=== PATIENT | female | born 1995 | race American Indian/Alaskan Native ===

== ENCOUNTER 2021-06-19 10:10 | Emergency (ER) | payer OTHER ==
--- NOTE | 2021-06-19 12:05 | Emergency Department Report ---
ED Female HPI - General Chief complaint: Vaginal Bleeding Stated complaint: 17WKS PREG SPOTTING/CRAMPS Time Seen by Provider: 06/19/21 11:52 Source: patient Mode of arrival: Ambulatory Limitations: No Limitations - History of Present Illness Initial comments: This is a 26-year-old -[place] female that presents to the emergency room with vaginal bleeding since yesterday. Patient is 17 weeks . She also reports upper abdominal pain. She reports vaginal bleeding and spotting. Her abdominal pain is a cramping sensation that is worse in her pelvic region. Last menstrual period was February 20, 2021, A0. She denies urinary frequency, urgency, dysuria, fever, chills, back pain, diarrhea or vomiting. MD Complaint: vaginal bleeding -: Last night Location: suprapubic, other (RUQ) Severity scale (0 -10): 6 Quality: cramping Are you Now?: Yes Last Menstrual Period: 02/20/21 EDC: 11/27/21 Associated Symptoms: vaginal bleeding, abdominal pain. denies: vaginal discharge, nausea/vomiting, fever/chills, headaches, dysuria, hematuria, shortness of breath - Related Data : 3 Para: 2 A: 0 Previous Rx's Medication Instructions Recorded Last Taken Type Nitrofurantoin Frio/M-Cryst 100 mg PO Q12HR #20 capsule 06/19/21 Unknown Rx [Macrobid CAP] Allergies Allergy/AdvReac Type Severity Reaction Status Date / Time Iodinated Contrast Media Allergy Unknown Verified 06/19/21 11:55 ED Review of Systems ROS: Stated complaint: 17WKS PREG SPOTTING/CRAMPS Other details as noted in HPI Constitutional: denies: chills, fever Respiratory: denies: cough, shortness of breath, wheezing Cardiovascular: denies: chest pain, palpitations Gastrointestinal: abdominal pain. denies: nausea, diarrhea Genitourinary: hematuria. denies: urgency, dysuria, discharge Musculoskeletal: denies: back pain, joint swelling, arthralgia Neurological: denies: headache, weakness, paresthesias Psychiatric: denies: anxiety, depression ED Past Medical Hx - Past Medical History Previous Medical History?: No - Surgical History Past Surgical History?: No - Medications Home Medications: Home Medications Medication Instructions Recorded Confirmed Last Taken Type Nitrofurantoin Frio/M-Cryst 100 mg PO Q12HR #20 capsule 06/19/21 Unknown Rx [Macrobid CAP] ED Physical Exam - General Limitations: No Limitations General appearance: alert, in no apparent distress - Respiratory Respiratory exam: Present: normal lung sounds bilaterally. Absent: respiratory distress - Cardiovascular Cardiovascular Exam: Present: regular rate, normal rhythm. Absent: systolic murmur, diastolic murmur, rubs, gallop - GI/Abdominal GI/Abdominal exam: Present: soft, tenderness (Suprapubic), normal bowel sounds. Absent: guarding, rebound - Back Exam Back exam: Present: CVA tenderness (R). Absent: CVA tenderness (L) - Neurological Exam Neurological exam: Present: alert, oriented X3, normal gait - Psychiatric Psychiatric exam: Present: normal affect, normal mood - Skin Skin exam: Present: warm, dry, intact, normal color. Absent: rash ED Course Vital Signs 06/19/21 11:50 Temperature 98 F Pulse Rate 80 Respiratory 16 Rate Blood Pressure 97/64 [Left] O2 Sat by Pulse 93 Oximetry ED Medical Decision Making - Lab Data Result diagrams: 06/19/21 12:00 06/19/21 12:00 Vital Signs 06/19/21 11:50 Temperature 98 F Pulse Rate 80 Respiratory 16 Rate Blood Pressure 97/64 [Left] O2 Sat by Pulse 93 Oximetry Lab Results 06/19/21 06/19/21 06/19/21 Range/Units 12:00 12:00 12:00 WBC 11.2 H (4.5-11.0) K/mm3 RBC 4.63 (3.65-5.03) M/mm3 Hgb 12.3 (10.1-14.3) gm/dl Hct 36.7 (30.3-42.9) % MCV 79 (79-97) fl MCH 27 L (28-32) pg MCHC 33 (30-34) % RDW 15.9 H (13.2-15.2) % Plt Count 181 (140-440) K/mm3 Lymph % (Auto) 10.2 L (13.4-35.0) % Frio % (Auto) 7.4 H (0.0-7.3) % Eos % (Auto) 2.9 (0.0-4.3) % Baso % (Auto) 0.5 (0.0-1.8) % Lymph # (Auto) 1.2 (1.2-5.4) K/mm3 Frio # (Auto) 0.8 (0.0-0.8) K/mm3 Eos # (Auto) 0.3 (0.0-0.4) K/mm3 Baso # (Auto) 0.1 (0.0-0.1) K/mm3 Seg Neutrophils % 79.0 H (40.0-70.0) % Seg Neutrophils # 8.9 H (1.8-7.7) K/mm3 Sodium 137 (137-145) mmol/L Potassium 3.5 L (3.6-5.0) mmol/L Chloride 105.7 (98-107) mmol/L Carbon Dioxide 25 (22-30) mmol/L Anion Gap 10 mmol/L BUN 5 L (7-17) mg/dL Creatinine 0.4 L (0.6-1.2) mg/dL Estimated GFR > 60 ml/min BUN/Creatinine Ratio 13 % Glucose 79 (65-100) mg/dL Calcium 9.4 (8.4-10.2) mg/dL Total Bilirubin 0.20 (0.1-1.2) mg/dL AST 17 (5-40) units/L ALT 18 (7-56) units/L Alkaline Phosphatase 71 (35-129) units/L Total Protein 7.2 (6.3-8.2) g/dL Albumin 3.7 L (3.9-5) g/dL Albumin/Globulin Ratio 1.1 % HCG, Quant 73926 H (0-4) mIU/mL Urine Color (Yellow) Urine Turbidity (Clear) Urine pH (5.0-7.0) Ur Specific Superior (1.003-1.030) Urine Protein (Negative) mg/dL Urine Glucose (UA) (Negative) mg/dL Urine Ketones (Negative) mg/dL Urine Blood (Negative) Urine Nitrite (Negative) Urine Bilirubin (Negative) Urine Urobilinogen (<2.0) mg/dL Ur Leukocyte Esterase (Negative) Urine WBC (Auto) (0.0-6.0) /HPF Urine RBC (Auto) (0.0-6.0) /HPF U Epithel Cells (Auto) (0-13.0) /HPF Urine Mucus /HPF Blood Type 06/19/21 06/19/21 Range/Units 12:00 13:24 WBC (4.5-11.0) K/mm3 RBC (3.65-5.03) M/mm3 Hgb (10.1-14.3) gm/dl Hct (30.3-42.9) % MCV (79-97) fl MCH (28-32) pg MCHC (30-34) % RDW (13.2-15.2) % Plt Count (140-440) K/mm3 Lymph % (Auto) (13.4-35.0) % Frio % (Auto) (0.0-7.3) % Eos % (Auto) (0.0-4.3) % Baso % (Auto) (0.0-1.8) % Lymph # (Auto) (1.2-5.4) K/mm3 Frio # (Auto) (0.0-0.8) K/mm3 Eos # (Auto) (0.0-0.4) K/mm3 Baso # (Auto) (0.0-0.1) K/mm3 Seg Neutrophils % (40.0-70.0) % Seg Neutrophils # (1.8-7.7) K/mm3 Sodium (137-145) mmol/L Potassium (3.6-5.0) mmol/L Chloride (98-107) mmol/L Carbon Dioxide (22-30) mmol/L Anion Gap mmol/L BUN (7-17) mg/dL Creatinine (0.6-1.2) mg/dL Estimated GFR ml/min BUN/Creatinine Ratio % Glucose (65-100) mg/dL Calcium (8.4-10.2) mg/dL Total Bilirubin (0.1-1.2) mg/dL AST (5-40) units/L ALT (7-56) units/L Alkaline Phosphatase (35-129) units/L Total Protein (6.3-8.2) g/dL Albumin (3.9-5) g/dL Albumin/Globulin Ratio % HCG, Quant (0-4) mIU/mL Urine Color Yellow (Yellow) Urine Turbidity Slightly-cloudy (Clear) Urine pH 6.0 (5.0-7.0) Ur Specific Superior 1.014 (1.003-1.030) Urine Protein <15 mg/dl (Negative) mg/dL Urine Glucose (UA) Neg (Negative) mg/dL Urine Ketones Tr (Negative) mg/dL Urine Blood Neg (Negative) Urine Nitrite Neg (Negative) Urine Bilirubin Neg (Negative) Urine Urobilinogen < 2.0 (<2.0) mg/dL Ur Leukocyte Esterase Mod (Negative) Urine WBC (Auto) 16.0 H (0.0-6.0) /HPF Urine RBC (Auto) 5.0 (0.0-6.0) /HPF U Epithel Cells (Auto) 14.0 H (0-13.0) /HPF Urine Mucus Few /HPF Blood Type O POSITIVE - Radiology Data Radiology results: report reviewed ULTRASOUND OBSTETRIC INDICATION / CLINICAL INFORMATION: vaginal bleeding 17 wks gest. Clinical Gestational Age (GA) in weeks, days: 17, 2 TECHNIQUE: Transabdominal. COMPARISON: None available. FINDINGS: Single intrauterine . Biparietal Diameter = 3.8 cm = 17, for weeks, days Head Circumference = 13 point cm = 17 weeks, days Abdominal Circumference = 11.5 cm = 17, 10 weeks, days Femur Length = 2.4 cm = 17, 0 weeks, days Average Ultrasound Age (AUA) = 17, 2 weeks, days Heart Rate: 138 beats per minute. Estimated Weight in grams (if calculated): 184 Estimated Weight Growth Percentile (if calculated): Not performed Position: breech. Cervix: closed. Length in cm (if measured): 3.3 Placenta: Fundal and free of the os. IMPRESSION: 1. Single, living intrauterine with estimated sonographic age of 17 weeks 2 days. 2. No significant sonographic abnormality. Signer Name: Angel Ratliff MD Signed: 06/19/2021 1:01 PM Workstation Name: [email or web address] - Medical Decision Making This is a 26-year-old female that presents with vaginal bleeding for 1 day. Vitals are stable and patient in no acute distress. Mild suprapubic tenderness on exam. Denies vaginal discharge. Work-up: Urinalysis, urine test, hCG quant, and OB ultrasound. Urinalysis positive for WBCs and epithelial ce lls, hCG quant, and OB ultrasound findings of Single, living intrauterine with estimated sonographic age of 17 weeks 2 days. Start Macrobid for acute cystitis. Instructed to follow-up with her [facility] in 24 to 48 hours. Patient discharged home stable with strict return instructions. Critical care attestation.: If time is entered above; I have spent that time in minutes in the direct care of this critically ill patient, excluding procedure time. ED Disposition Clinical Impression: Threatened Hematuria Qualifiers: Hematuria type: unspecified type Qualified Code(s): R31.9 - Hematuria, unspecified Abdominal pain Qualifiers: Abdominal location: right upper quadrant Qualified Code(s): R10.11 - Right upper quadrant pain Acute cystitis during Qualifiers: Trimester: second trimester Qualified Code(s): O23.12 - Infections of bladder in , second trimester Disposition: 01 HOME / SELF CARE / HOMELESS Is pt being admited?: No Condition: Stable Instructions: Abdominal Pain During , [id number], and Urinary Tract Infection, Vaginal Bleeding During , Second Trimester, [id number] Prescriptions: Nitrofurantoin Frio/M-Cryst [Macrobid CAP] 100 mg PO Q12HR #20 capsule Referrals: GRACIE STONE MD [Staff Physician] - 3-5 Days Forms: Work/School Release Form(ED) Time of Disposition: 15:12
[2021-06-19 12:36] LABS: Basophils # (Auto) 0.1 K/mm3 (0.0-0.1); Basophils % (Auto) 0.5 % (0.0-1.8); Eosinophils # (Auto) 0.3 K/mm3 (0.0-0.4); Eosinophils % (Auto) 2.9 % (0.0-4.3); Hematocrit 36.7 % (30.3-42.9); Hemoglobin 12.3 gm/dl (10.1-14.3); Lymphocytes # (Auto) 1.2 K/mm3 (1.2-5.4); Lymphocytes % (Auto) 10.2 % (13.4-35.0); Mean Corpuscular HGB Conc 33 % (30-34); Mean Corpuscular Volume 79 fl (79-97); Monocytes # (Auto) 0.8 K/mm3 (0.0-0.8); Monocytes % (Auto) 7.4 % (0.0-7.3); Platelet Count 181 K/mm3 (140-440); Red Blood Count 4.63 M/mm3 (3.65-5.03); Red Cell Distribution Width 15.9 % (13.2-15.2)
[2021-06-19 12:43] LABS: Alanine Aminotransferase 18 units/L (7-56); Albumin 3.7 g/dL (3.9-5); Blood Urea Nitrogen 5 mg/dL (7-17); Calcium 9.4 mg/dL (8.4-10.2); Hemolysis Index 0
[2021-06-19 12:58] LABS: BUN/Creatinine Ratio 13
--- NOTE | 2021-06-19 13:05 | Ultrasound Report ---
ULTRASOUND OBSTETRIC INDICATION / CLINICAL INFORMATION: vaginal bleeding 17 wks gest. Clinical Gestational Age (GA) in weeks, days: 17, 2 TECHNIQUE: Transabdominal. COMPARISON: None available. FINDINGS: Single intrauterine . Biparietal Diameter = 3.8 cm = 17, for weeks, days Head Circumference = 13 point cm = 17 weeks, days Abdominal Circumference = 11.5 cm = 17, 10 weeks, days Femur Length = 2.4 cm = 17, 0 weeks, days Average Ultrasound Age (AUA) = 17, 2 weeks, days Heart Rate: 138 beats per minute. Estimated Weight in grams (if calculated): 184 Estimated Weight Growth Percentile (if calculated): Not performed Position: breech. Cervix: closed. Length in cm (if measured): 3.3 Placenta: Fundal and free of the os. IMPRESSION: 1. Single, living intrauterine with estimated sonographic age of 17 weeks 2 days. 2. No significant sonographic abnormality. Signer Name: Angel Ratliff MD Signed: 06/19/2021 1:01 PM Workstation Name: [email or web address]
[2021-06-19 13:44] LABS: Bilirubin,Urine NEG (Negative); Blood,Urine NEG (Negative); Color,Urine Yellow (Yellow); Mucus,Urine FEW /HPF; Protein,Urine <15 mg/dL mg/dL (Negative); Urobilinogen,Urine < 2.0 mg/dL (<2.0)
[2021-06-19] MEDS ORDERED: diphenhydrAMINE 25 MG/10 ML ORAL LIQUID PO ONE (14:13)
[2021-06-19 15:29] VITALS: BP 102/58
== END 2021-06-19 15:28 | disposition home or self-care (01) ==
LOC: ED 10:10
DX: O20.0 Threatened abortion (principal); O26.892 Other specified pregnancy related conditions, second trimester; O23.12 Infections of bladder in pregnancy, second trimester; R31.9 Hematuria, unspecified; R10.9 Unspecified abdominal pain; Z3A.17 17 weeks gestation of pregnancy
CPT/HCPCS: 36415; 76805; 80053; 81001; 84702; 85025; 86900; 86901; 87086; 99284; Q0163

== ENCOUNTER 2021-07-23 20:32 | Outpatient (CLI) | payer OTHER ==
[2021-07-23 21:39] VITALS: BP 105/58
[2021-07-23] MEDS ORDERED: LACTATED RINGERS 1,000 ML IV ONE (21:48)
[2021-07-23 22:10] LABS: Bilirubin,Urine NEG (Negative); Blood,Urine NEG (Negative); Color,Urine Straw (Yellow); Protein,Urine <15 mg/dL mg/dL (Negative); Urobilinogen,Urine < 2.0 mg/dL (<2.0)
== END 2021-07-23 22:45 | disposition home or self-care (01) ==
LOC: TRG 20:32 → APU 20:33 → TRG 22:45
PROVIDERS: ATTEND Obstetrics & Gynecology
DX: O26.892 Other specified pregnancy related conditions, second trimester (principal); R10.9 Unspecified abdominal pain; Z3A.21 21 weeks gestation of pregnancy
CPT/HCPCS: 59025; 81001

== ENCOUNTER 2021-10-28 11:33 | Outpatient (CLI) | payer OTHER ==
[2021-10-28] MEDS ORDERED: LACTATED RINGERS 500 ML IV ONE (11:43)
[2021-10-28 12:30] VITALS: BP 105/60
--- NOTE | 2021-10-28 12:41 | Ultrasound Report ---
ULTRASOUND OBSTETRIC LIMITED ULTRASOUND BIOPHYSICAL PROFILE INDICATION / CLINICAL INFORMATION: wellbeing. TECHNIQUE: Transabdominal. COMPARISON: None available. FINDINGS: BREATHING MOVEMENT = 2 GROSS BODY MOVEMENT = 2 TONE = 2 QUALITATIVE AMNIOTIC FLUID VOLUME = 2 TOTAL BIOPHYSICAL SCORE = 8/8 HEART RATE (beats per minute): 140 PRESENTATION: Cephalic. ADDITIONAL FINDINGS: None. IMPRESSION: 1. Biophysical Score = 8/8 2. Cephalic presentation with heart rate of 140 bpm. Signer Name: Angel Ratliff MD Signed: 10/28/2021 12:36 PM Workstation Name: [id number]
== END 2021-10-28 13:20 | disposition home or self-care (01) ==
LOC: TRG 11:33 → APU 11:35 → TRG 13:20
PROVIDERS: ATTEND Obstetrics & Gynecology
DX: O26.893 Other specified pregnancy related conditions, third trimester (principal); V89.2XXA Person injured in unspecified motor-vehicle accident, traffic, initial encounter; Z3A.35 35 weeks gestation of pregnancy; Y93.89 Activity, other specified; Y92.89 Other specified places as the place of occurrence of the external cause; Y99.8 Other external cause status
CPT/HCPCS: 59025; 76819

== ENCOUNTER 2021-10-29 22:37 | Outpatient (CLI) | payer OTHER ==
[2021-10-29] MEDS ORDERED: LACTATED RINGERS 500 ML IV ONE (23:04)
[2021-10-29 23:29] VITALS: BP 110/60
[2021-10-29] MEDS ORDERED: LACTATED RINGERS 1,000 ML IV ONE (23:41)
[2021-10-29] MEDS ORDERED: TERBUTALINE 1 MG/1 ML INJ SUB-Q ONE (23:41)
[2021-10-30 00:35] LABS: Bilirubin,Urine NEG (Negative); Blood,Urine SM (Negative); Color,Urine Yellow (Yellow); Protein,Urine <15 mg/dL mg/dL (Negative); Urobilinogen,Urine < 2.0 mg/dL (<2.0)
--- NOTE | 2021-10-30 01:36 | Event Note ---
Date: 10/30/21 Pt is a 26 y.o.@ 35.6 wks who presented to triage with a c/o contractions. EFM was applied that found patient was having some irregular contractions. Her cervical exam was 2/50/-1, very posterior and firm. She was given some fluids and terb. The contractions stopped. Upon entering room for reassessment, pt was sitting up in bed on her iPad, stating that she was no longer feeling contractions and was ready for discharge home. She denies vaginal bleeding, LOF. Her cervical exam before discharge home was 2/50/-1, still very posterior and firm. There was a category 1 monitor strip throughout hospital stay. She was instructed to keep her next scheduled appointment in the office and to return to triage for ctxs that are regular and painful, LOF, vaginal bleeding, and decreased movement. Pt verbalized understanding. Patient discharge home in stable and good condition.
== END 2021-10-30 01:27 | disposition home or self-care (01) ==
LOC: TRG 22:37 → APU 22:38 → TRG 10-30 01:27
PROVIDERS: ATTEND Obstetrics & Gynecology
DX: O62.9 Abnormality of forces of labor, unspecified (principal); Z3A.35 35 weeks gestation of pregnancy
CPT/HCPCS: 59025; 81001; 87086; 96360; 96372; J3105; J7120

== ENCOUNTER 2021-10-31 23:24 | Outpatient (CLI) | payer OTHER ==
[2021-10-31] MEDS ORDERED: LACTATED RINGERS 500 ML IV ONE (23:59)
[2021-11-01] MEDS ORDERED: LACTATED RINGERS 1,000 ML ONE (00:06)
[2021-11-01 01:51] VITALS: BP 116/73
[2021-11-06 03:06] LABS: Bacteria,Urine 1+ /HPF (Negative); Bilirubin,Urine NEG (Negative); Blood,Urine NEG (Negative); Color,Urine Yellow (Yellow); Protein,Urine <15 mg/dL mg/dL (Negative); Urobilinogen,Urine < 2.0 mg/dL (<2.0)
== END 2021-11-01 02:45 | disposition home or self-care (01) ==
LOC: TRG 23:24 → APU 23:25 → TRG 11-01 02:45
PROVIDERS: ATTEND Obstetrics & Gynecology
DX: Z34.93 Encounter for supervision of normal pregnancy, unspecified, third trimester (principal); Z3A.36 36 weeks gestation of pregnancy
CPT/HCPCS: 81001; 87086

== ENCOUNTER 2021-11-06 02:20 | Inpatient (IN) | payer OTHER ==
[2021-11-06 03:22] LABS: Bilirubin,Urine Negative (Negative); Blood,Urine Negative (Negative); Color,Urine Yellow (Yellow); Protein,Urine <15 mg/dL mg/dL (Negative)
[2021-11-06 03:23] LABS: Urobilinogen,Urine < 2.0 mg/dL (<2.0)
[2021-11-06 03:25] LABS: Bacteria,Urine 1+ /HPF (Negative)
--- NOTE | 2021-11-06 05:23 | History and Physical Report ---
History of Present Illness Date of examination: 11/06/21 Date of admission: 11/06/2021 Chief complaint: "A lot of contractions." History of present illness: Pt is a 26 y.o. @ 37 wks who presents to triage with c/o contractions. Tonight they became more painful and intense so she presented to triage for evaluation. Her cervical exam in the office on 11/05 was 4/70/-1. Her previous cervical exam on 10/30/21 was 2/50/-1. 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 No placenta previa or vasa previa seen on [facility] u/s on 10/11. Posterior placenta noted on 10/11. EDC Confirmation: 11/27/2021 Gestational Age: 37 weeks on admission Past History : 3 Term Births: 2 Premature Births: 0 Living Children: 2 Para: 2 Mult. Births: 0 Prev : 0 Aborta: 0 Elect. Ab: 0 Spont. Ab: 0 Ectopics: 0 # 1 Delivery date: Weeks Gestation: Term labor: no Delivery type: Sex: Female weight: 5#1 # 2 Delivery date: 06/15/2017 Weeks Gestation: Term labor: no Delivery type: Sex: Male weight: 6#7 Past Medical History: Reviewed and updated today: Tetralogy of Fallot Past Surgical History: Reviewed and updated today: cardiac surgery to repair ToF General Comments - FH: denies [facility] Social History: Smoking History: Patient has never smoked. Risk Factors: Smoked Tobacco Use: Never smoker Smokeless Tobacco Use: Never Passive Smoke Exposure: no HIV High Risk Behavior: no Alcohol Use: no Drug Use: no Past Medical History Anesthesia Complications: negative Anemia: negative Autoimmune Disorder: negative Bleeding Disorder: negative Blood Transfusions: negative Breast Disease: negative Diabetes: negative Heart Disease: positive, ToF Hypertension: negative Hepatitis/Liver Disease: negative Kidney Disease/UTI: negative Neurologic/Epilepsy/Migraines: negative Phlebitis/Varicosities: negative Psychiatric: negative Pulmonary Disease/Asthma: negative Thyroid Disease: negative Surgery (Non-investment banker): cardiac surgery to repair ToF Abnormal PAP: negative ARNULFO Exposure: negative Infertility: negative Uterine Anomaly: negative Uterine Surgery (not C/S): negative Family Hx: denies H Social Hx: Smoking History: Patient has never smoked. Infection History Hx of STD: none HIV Risk Eval: no Hepatitis B Risk Eval: low risk Personal hx. of genital herpes: no Partner hx. of genital herpes: no Rash, Viral, or Febrile illness since last LMP? no Genetic History Congenital Heart Defect: Mom: no Dad: no Celso Disease: Mom: no Dad: no Thalassemia Mom: no Dad: no Neural Tube Defect Mom: no Dad: no Down's Syndrome Mom: no Dad: no Usman-Sachs Mom: no Dad: no Sickle Cell Disease/Trait Mom: no Dad: no Hemophilia Mom: no Dad: no Muscular Dystrophy Mom: no Dad: no Cystic Fibrosis Mom: no Dad: no Jessie Chorea Mom: no Dad: no Mental Retardation Mom: no Dad: no Fragile X Mom: no Dad: no Other Genetic/Chromosomal Disorder Mom: no Dad: no Child w/other defect Mom: no Dad: no Active Medications (reviewed today): prental vitamins () Current Allergies (reviewed today): IODINE (Critical) * SHELLFISH (Critical) Past History Past Medical History: hematologic disorders (Sickle cell trait), other (Tetralogy of Fallot) Past Surgical History: other (Tetralogy of Fallot that was surgically repaired ) Family/Genetic History: none Social history: no significant social history - Obstetrical History Expected Date of Delivery: 11/27/21 Actual Gestation: 37 Week(s) 0 Day(s) : 3 Para: 2 Hx # Term Pregnancies: 2 Number of Pregnancies: 0 Spontaneous Abortions: 0 Induced : 0 Number of Living Children: 2 Medications and Allergies Allergies Allergy/AdvReac Type Severity Reaction Status Date / Time Iodinated Contrast Media Allergy Unknown Verified 10/28/21 13:10 Home Medications Medication Instructions Recorded Confirmed Last Taken Type Nitrofurantoin [place]/M-Cryst 100 mg PO Q12HR #20 capsule 06/19/21 Unknown Rx [Macrobid CAP] Nitrofurantoin [place]/M-Cryst 100 mg PO Q12HR #10 capsule 10/30/21 Unknown Rx [Macrobid CAP] Review of Systems All systems: negative - Vital Signs Vital signs: Vital Signs Temp Pulse Resp BP 98.2 F 78 18 118/65 11/06/21 03:03 11/06/21 03:03 11/06/21 03:03 11/06/21 03:03 Temp Pulse Resp BP Pulse Ox 98.2 F 78 18 118/65 11/06/21 03:03 11/06/21 03:03 11/06/21 03:03 11/06/21 03:03 - Physical Exam Breasts: Positive: deferred Cardiovascular: Regular rate Lungs: Positive: Normal air movement Abdomen: Positive: normal appearance, soft Genitourinary (Female): Positive: normal external genitalia, normal perenium Vulva: both: normal Extremities: Positive: normal - Obstetrical FHR: category 1 Uterine Contraction Monitor Mode: External Cervical Dilatation: 4 Cervical Effacement Percentage: 70 station: -1 Uterine Contraction Pattern: Irregular Uterine Tone Measurement Phase: Resting Uterine Contraction Intensity: Mild Results Result Diagrams: 11/06/21 06:20 Abnormal lab results 11/06/21 Range/Units 02:38 Urine WBC (Auto) 20.0 H (0.0-6.0) /HPF All other labs normal. HBsAg Screen Negative Negative *1 RPR Non Reactive Non Reactive *2 Rubella Antibodies, IgG 3.55 index Immune >0.99 *3 Non-immune <0.90 Equivocal 0.90 - 0.99 Immune >0.99 ABO Grouping O *4 Rh Factor Positive *5 Please note: Prior records for this patient's ABO / Rh type are not available for additional verification. Antibody Screen Negative Negative *6 WBC 8.1 x10E3/uL 3.4-10.8 *7 RBC 4.22 x10E6/uL 3.77-5.28 *8 Hemoglobin [L] 10.7 g/dL 11.1-15.9 *9 Hematocrit [L] 33.5 % 34.0-46.6 *10 MCV 79 fL 79-97 *11 MCH [L] 25.4 pg 26.6-33.0 *12 MCHC 31.9 g/dL 31.5-35.7 *13 RDW [H] 15.7 % 11.7-15.4 *14 Platelets 208 x10E3/uL 150-450 *15 Neutrophils 76 % Not Estab. *16 Lymphs 10 % Not Estab. *17 Monocytes 8 % Not Estab. *18 Eos 4 % Not Estab. *19 Basos 1 % Not Estab. *20 ! Immature Cells <No Reported Value> *21 Neutrophils (Absolute) 6.1 x10E3/uL 1.4-7.0 *22 Lymphs (Absolute) 0.8 x10E3/uL 0.7-3.1 *23 Monocytes(Absolute) 0.7 x10E3/uL 0.1-0.9 *24 Eos (Absolute) 0.3 x10E3/uL 0.0-0.4 *25 Baso (Absolute) 0.0 x10E3/uL 0.0-0.2 *26 ! Immature Granulocytes 1 % Not Estab. *27 ! Immature Grans (Abs) 0.1 x10E3/uL 0.0-0.1 *28 ! NRBC <No Reported Value> *29 Hematology Comments: <No Reported Value> *30 Tests: (2) AFP Tetra (192072) ! Results Report *31 ! Test Results: *Screen Negative* *32 ! Gest. Age on Collection Date 20.0 WEEKS *33 ! Gestat. Age Based On Ultrasound *34 20.0 on 07/09/2021 ! [age]ARIN [age] *35 ! Race Black *36 ! Weight 148 lbs *37 ! Insulin Dep Diabetes No *38 ! Multiple Gestation No *39 ! AFP Value 75.4 ng/mL *40 ! AFP MoM 1.19 *41 ! hCG Value 76022 mIU/mL *42 ! hCG MoM 0.87 *43 ! uE3 Value 2.99 ng/mL *44 ! uE3 MoM 1.31 *45 ! DIANNA Value 155.43 pg/mL *46 ! DIANNA MoM 0.83 *47 ! OSBR [place] 1 [place] [address] *48 ! DSR (Second Trimester) 1 [place] [address] *49 ! DSR (By Age) 1 IN 1039 *50 ! T18 Risk Not increased *51 ! T18 (By Age) 1:4050 *52 ! Interpretation NL42 *53 Interpretation: Screen Negative This result is screen negative for OSB, Down Syndrome and Trisomy 18. The AFP MoM and patient specific risks calculated are based on the gestational age and the clinical information provided. This test can identify up to 80% of open neural tube defects. Closed neural tube defects and some open defects may not be detected by this test. The combination of maternal age, AFP, hCG, uE3, and DIANNA identifies 75-80% of Down Syndrome. The combination of maternal age, AFP, hCG and uE3 identifies 60% of Trisomy 18 pregnancies. The [place] [employer] recommends amniocentesis be offered to women age 35 and older. Recalculations are not recommended when gestational dating by LMP and ultrasound are within 10 days. ! Comments: [facility] *54 Mervat Smith, Ph.D., [facility] Director References: Available Upon Request. Multiples Of Median Cutoffs Abbreviation Definitions For AFP Elevations IDD- Insulin Dep Diabetes [place] 2.5 Black 2.8 OSBR- Open Spina Bifida IDD 2.0 Twins 4.5 Risk DSR Cutoff 1:270 DSR- Down Syndrome Risk T18 Cutoff 1:100 T18- Trisomy 18 Down Syndrome and Trisomy 18 screening are considered Investigational For further inquiries contact [employer] at [phone]. Tests: (3) Cystic Fibrosis Profile (206318) ! CF, Screen Comment: *55 RESULTS: Negative for 32 mutations analyzed INTERPRETATION: This individual is negative for the mutations analyzed. This negative result may need further interpretation depending on the clinical indication. This result reduces but does not eliminate the risk to be a CF carrier. COMMENTS: The detection rate varies with ethnicity and is listed below. The presence of an undetected mutation in the CF gene cannot be ruled out. In the absence of family history, the remaining risk that a person with a negative result could have at least one CF mutation is listed in the table. If there is a family history of CF, these risk figures do not apply. As detailed information regarding this individual's family history would permit a more accurate assessment of this individual's risk to be a carrier of cystic fibrosis, please contact [facility] at for a revised report. Mutation Detection Detection rates are based on mutation Rates among Ethnic frequencies in patients affected with Groups cystic fibrosis. Among individuals with an atypical or mild presentation (e.g. congenital absence of the vas deferens, pancreatitis) detection rates may vary from those provided here: Carrier risk reduction when no family history Detection Ethnicity Rate Ashkenazi 10/31 to 97% Mormon 10/30 to 90% (non-) -Cypriot 65 to 69% 46 to 73% to 55% This interpretation is based on the clinical and family relationship information provided and the current understanding of the molecular genetics of this condition. MUTATIONS ANALYZED: G85E V520F X1696R 2183AA to G R117H G542X C6796V 2184delA R334W S549N 394delTT 2789+5G to A R347H S549R 621+1G to T 3120+1G to A R347P G551D 711+1G to T 3659delC A455E R553X 1078delT 3849+10kbC to T [id number] R560T 1717-1G to A 3876delA TxbohH430 W1654Y 1898+1G to A 3905insT METHODS/LIMITATIONS: DNA is isolated from the sample and tested for the 32 CF mutations on the [place] Array Platform ([employer]). Regions of the CFTR gene are amplified enzymatically and subjected to a solution-phase multiplex allele-specific primer extension with subsequent hybridization to a bead array and fluorescence detection. Polymorphisms F508C, I506V and I507V are included in this panel to rule out false positive [id number] homozygotes. Reflex testing of 5T is included in the panel for R117H interpretation. False positive or negative results may occur for reasons that include genetic variants, blood transfusions, bone marrow transplantation, erroneous representation of family relationships or contamination of a sample with maternal cells. REFERENCES: 1. Updates on Carrier Screening for Cystic Fibrosis. (2011) Am J Ob Gynecol 117(4):3194-3615 2. Glenn et al. (2004) [facility]heline Med 6:387-91 3. Luzmaria, et al. (2002) [facility]line Med 4:379-391 4. Preconception and carrier screening for cystic fibrosis: (2001)ACOG.ACMG publication Results Released By: Maximino Daniels, Ph.D. Social Insurance Analyst Report Released By: Maximino Daniels, Ph.D. Social Insurance Analyst ! Comment: SPRCS *56 The assay provides information intended to be used for carrier screening in adults of reproductive age, as an aid in screening, and as a confirmatory test for another medically established diagnosis in newborns and children. The test is not indicated for use in diagnostic testing, pre-implantation screening, or for any stand-alone diagnostic purposes without confirmation by another medically established diagnostic product or procedure. Tests: (4) HB Solu + Rflx Frac ([id number]) Hemoglobin (Hgb) Solubility [A] Positive Negative *57 Verified by repeat analysis Tests: (5) Hgb Fractionation [place] ([id number]) ! Hgb F 0.0 % 0.0-2.0 *58 ! Hgb A [L] 57.4 % 96.4-98.8 *59 ! Hgb A2 [H] 3.3 % 1.8-3.2 *60 ! Hgb S [H] 39.3 % 0.0 *61 ! Interpretation: FARRUKH *62 Reflex to Hgb Solubility indicated for confirmation. Tests: (6) Hgb Solubility (184029) ! Hgb Solubility DUPPRG (X) *63 Duplicate procedure ordered. ! Final Interpretation: SBAS *64 Hemoglobin pattern and concentrations are consistent with sickle cell trait (heterozygous). Suggest clinical and hematologic correlation. Sickle Trait Interpretation Ranges Hgb A 50.0 - 70.0% Hgb S 30.0 - 45.0% Hgb A2 1.8 - 4.0% Tests: (7) HIV Ag/Ab with Reflex ([id number]) HIV Screen 4th Generation wRfx Non Reactive Non Reactive *65 Tests: (8) HCV Antibody reflex to DOMINIC (317143) HCV Ab <0.1 s/co ratio 0.0-0.9 *66 Tests: (9) Interpretation: ([id number]) ! Interpretation: SPRCS *67 Negative Not infected with HCV, unless recent infection is suspected or other evidence exists to indicate HCV infection. Assessment and Plan A: 26 y.o. @ 37 wks. Cervical exam . - Patient Problems (1) Prolonged latent phase of labor Onset Date: ~11/06/21 Current Visit: Yes Status: Acute Plan to address problem: Admit to labor and delivery: observation for therapeutic rest. Initiate IV. Draw admission labs. IV pain medication as ordered. Monitor for s/sx of active labor. If cervical exam remains unchanged will discharge patient home with strict labor precautions. (2) 37 or more weeks gestation of Onset Date: ~11/06/21 Current Visit: Yes Status: Acute Plan to address problem: Continue to monitor status through EFM. (3) Sickle cell trait Current Visit: Yes Status: Acute
[2021-11-06] MEDS ORDERED: miSOPROStol 200 MCG TAB PR PRN (05:24)
[2021-11-06] MEDS ORDERED: ACETAMINOPHEN 325 MG TAB PO PRN (05:24)
[2021-11-06] MEDS ORDERED: ONDANSETRON 4 MG/2 ML INJ IV PRN ×2 (05:24→17:18)
[2021-11-06] MEDS ORDERED: LOPERAMIDE 2 MG CAP PO PRN (05:24)
[2021-11-06] MEDS ORDERED: TERBUTALINE 1 MG/1 ML INJ SUB-Q PRN (05:24)
[2021-11-06] MEDS ORDERED: ePHEDrine SULFATE 50 MG/1 ML INJ IV PRN (05:24)
[2021-11-06] MEDS ORDERED: fentaNYL 100 MCG/2 ML INJ IV PRN (05:24)
[2021-11-06] MEDS ORDERED: NALOXONE 0.4 MG/1 ML INJ IV PRN (05:24)
[2021-11-06] MEDS ORDERED: PROMETHAZINE 25 MG TAB PO PRN (05:24)
[2021-11-06] MEDS ORDERED: OXYTOCIN 10 UNIT/1 ML INJ IM PRN (05:24)
[2021-11-06] MEDS ORDERED: METHYLERGONOVINE MALEATE 0.2 MG/ML VIAL IM PRN (05:24)
[2021-11-06] MEDS ORDERED: CARBOPROST TROMETHAMINE 250 MCG/1 ML INJ IM PRN (05:24)
[2021-11-06] MEDS ORDERED: MINERAL OIL 30 ML ORAL LIQD PO PRN (05:24)
[2021-11-06] MEDS ORDERED: BUTORPHANOL 2 MG/1 ML INJ IV PRN (05:24)
[2021-11-06] MEDS ORDERED: LIDOCAINE (2%) 20 MG/1 ML VIAL 20 ML MDV INFILTRATI ONE ×2 (05:24→23:00)
[2021-11-06] MEDS ORDERED: OXYTOCIN DRIP 30 UNITS/500 ML BAG IV SCH ×2 (06:00→14:00)
[2021-11-06] MEDS ORDERED: fentaNYL 100 MCG/2 ML INJ IV ONE (06:30)
[2021-11-06 06:38] LABS: Hemoglobin 11.9 gm/dl (10.1-14.3); Mean Corpuscular HGB Conc 32 % (30-34); Mean Corpuscular Volume 75 fl (79-97); Platelet Count 170 K/mm3 (140-440); Red Blood Count 4.91 M/mm3 (3.65-5.03); Red Cell Distribution Width 16.8 % (13.2-15.2)
--- NOTE | 2021-11-06 11:34 | Progress Note ---
Assessment and Plan pt reports ctx have returned after IV sedation, SVE now 5/80/0 with BBOW; + blood show with SVE. Plan to admit for labor, will need amp for unknown GBS. Status change completed to inpatient. Pt plans for epidural. Anticipate . - Patient Problems (1) GBS screening not performed Current Visit: Yes Status: Acute Plan to address problem: GBS screening collected yesterday but not resulted Will start ampicillin q4hrs until delivery (2) 37 or more weeks gestation of Onset Date: ~11/06/21 Current Visit: Yes Status: Acute Subjective - Subjective Date of service: 11/06/21 Principal diagnosis: IUP @ 37+0 weeks, early labor Patient reports: movement normal, contractions, no loss of fluid, no vaginal bleeding Objective - Vital Signs Vital Signs: Vital Signs - 12hr 11/06/21 11/06/21 11/06/21 03:03 05:46 05:50 Temperature 98.2 F Pulse Rate 78 78 Respiratory 18 Rate Blood Pressure 118/65 O2 Sat by Pulse 98 Oximetry O2 Sat by Pulse 97 Oximetry [ Throughout] 11/06/21 11/06/21 11/06/21 05:55 06:00 06:05 Temperature Pulse Rate 83 81 74 Respiratory Rate Blood Pressure O2 Sat by Pulse 97 97 97 Oximetry O2 Sat by Pulse Oximetry [ Throughout] 11/06/21 11/06/21 11/06/21 06:10 06:15 06:20 Temperature Pulse Rate 76 71 69 Respiratory Rate Blood Pressure O2 Sat by Pulse 97 97 97 Oximetry O2 Sat by Pulse Oximetry [ Throughout] 11/06/21 11/06/21 11/06/21 06:25 06:30 06:35 Temperature Pulse Rate 74 73 73 Respiratory Rate Blood Pressure O2 Sat by Pulse 96 96 97 Oximetry O2 Sat by Pulse Oximetry [ Throughout] 11/06/21 11/06/21 11/06/21 06:40 06:45 06:51 Temperature Pulse Rate 71 72 60 Respiratory Rate Blood Pressure O2 Sat by Pulse 94 95 96 Oximetry O2 Sat by Pulse Oximetry [ Throughout] 11/06/21 11/06/21 11/06/21 06:56 07:01 07:05 Temperature Pulse Rate 68 64 85 Respiratory Rate Blood Pressure O2 Sat by Pulse 96 95 94 Oximetry O2 Sat by Pulse Oximetry [ Throughout] 02/10/2711/06/21 11/06/21 07:06 07:11 07:15 Temperature Pulse Rate 63 65 75 Respiratory Rate Blood Pressure O2 Sat by Pulse 96 96 94 Oximetry O2 Sat by Pulse Oximetry [ Throughout] 11/06/21 11/06/21 11/06/21 07:16 07:21 07:26 Temperature Pulse Rate 64 68 74 Respiratory Rate Blood Pressure O2 Sat by Pulse 96 96 0 L Oximetry O2 Sat by Pulse Oximetry [ Throughout] 11/06/21 11/06/21 11/06/21 07:31 07:36 07:41 Temperature Pulse Rate 74 74 77 Respiratory Rate Blood Pressure O2 Sat by Pulse 96 96 97 Oximetry O2 Sat by Pulse Oximetry [ Throughout] 11/06/21 11/06/21 11/06/21 07:46 07:51 07:56 Temperature Pulse Rate 80 82 77 Respiratory Rate Blood Pressure O2 Sat by Pulse 96 97 96 Oximetry O2 Sat by Pulse Oximetry [ Throughout] 11/06/21 11/06/21 11/06/21 08:00 08:01 08:06 Temperature Pulse Rate 78 79 Respiratory Rate Blood Pressure O2 Sat by Pulse 96 96 Oximetry O2 Sat by Pulse 96 Oximetry [ Throughout] 11/06/21 11/06/21 11/06/21 08:16 08:22 08:23 Temperature Pulse Rate 53 L 71 Respiratory Rate Blood Pressure 101/62 O2 Sat by Pulse 85 92 Oximetry O2 Sat by Pulse Oximetry [ Throughout] 11/06/21 11/06/21 08:49 10:12 Temperature Pulse Rate 63 Respiratory Rate Blood Pressure O2 Sat by Pulse 82 L 77 L Oximetry O2 Sat by Pulse Oximetry [ Throughout] - Exam Breasts: normal Cardiovascular: Regular rate Lungs: Normal air movement Abdomen: Present: normal appearance, soft Vulva: both: normal Uterus: Present: normal FHR: category 1 Uterine Contraction Monitor Mode: External Cervical Dilatation: 5 Cervical Effacement Percentage: 80 station: 0 Uterine Contraction Pattern: Irregular Uterine Tone Measurement Phase: Contraction Uterine Contraction Intensity: Mild - Labs Labs: Abnormal Labs 11/06/21 11/06/21 02:38 06:20 MCV 75 L MCH 24 L RDW 16.8 H Urine WBC (Auto) 20.0 H Laboratory Results - last 24 hr 11/06/21 11/06/21 11/06/21 02:38 06:20 06:20 WBC 10.7 RBC 4.91 Hgb 11.9 Hct 37.0 MCV 75 L MCH 24 L MCHC 32 RDW 16.8 H Plt Count 170 Urine Color Yellow Urine Turbidity Clear Urine pH 6.0 Ur Specific [place] 1.006 Urine Protein <15 mg/dl Urine Glucose (UA) Negative Urine Ketones Negative Urine Blood Negative Urine Nitrite Negative Urine Bilirubin Negative Urine Urobilinogen < 2.0 Ur Leukocyte Esterase Large Urine WBC (Auto) 20.0 H Urine RBC (Auto) 3.0 U Epithel Cells (Auto) 3.0 Urine Bacteria (Auto) 1+ Urine Yeast (Budding) 1 Syphilis IgG Antibody Nonreactive SARS-CoV-2 (PCR) Blood Type Antibody Screen 11/06/21 11/06/21 06:20 09:28 WBC RBC Hgb Hct MCV MCH MCHC RDW Plt Count Urine Color Urine Turbidity Urine pH Ur Specific [place] Urine Protein Urine Glucose (UA) Urine Ketones Urine Blood Urine Nitrite Urine Bilirubin Urine Urobilinogen Ur Leukocyte Esterase Urine WBC (Auto) Urine RBC (Auto) U Epithel Cells (Auto) Urine Bacteria (Auto) Urine Yeast (Budding) Syphilis IgG Antibody SARS-CoV-2 (PCR) Negative Blood Type O POSITIVE Antibody Screen Negative
[2021-11-06] MEDS ORDERED: AMPICILLIN/NS 2 GM/100 ML 2 GM/100 ML BAG IV ONE (12:29)
[2021-11-06] MEDS: LACTATED RINGERS 1,000 ML IV SCH ×2 (15:41→20:03)
[2021-11-06] MEDS: AMPICILLIN/NS 1 GM/50 ML 1 GM/50 ML BAG IV SCH ×2 (15:42→20:11)
[2021-11-06] MEDS ORDERED: NALOXONE 2 MG/2 ML INJ IV PRN (17:18)
[2021-11-06] MEDS ORDERED: diphenhydrAMINE 50 MG/ML VIAL IV PRN (17:18)
[2021-11-06] MEDS ORDERED: NalbUPHINE 10 MG/1 ML INJ IV PRN (17:18)
--- NOTE | 2021-11-06 17:41 | Anesthesia Consultation ---
Anesthesia Consult and Med Hx Date of service: 11/06/21 - Airway Anesthetic Teeth Evaluation: Good ROM Head & Neck: Adequate Mental/Hyoid Distance: Adequate Mallampati Class: Class II Intubation Access Assessment: Probably Good - Pulmonary Exam CTA: Yes - Cardiac Exam Cardiac Exam: RRR - Pre-Operative Health Status ASA Pre-Surgery Classification: ASA2 Proposed Anesthetic Plan: Epidural - Pulmonary Hx Smoking: No Hx Asthma: No Hx Sleep Apnea: No - Cardiovascular System Hx Hypertension: No Hx Heart Attack/AMI: No Hx Percutaneous Transluminal Coronary Angioplasty (PTCA): No - Central Nervous System Hx Seizures: No Hx Psychiatric Problems: No - Gastrointestinal Hx Gastroesophageal Reflux Disease: No - Endocrine Hx Renal Disease: No Hx Liver Disease: No Hx Insulin Dependent Diabetes: No Hx Non-Insulin Dependent Diabetes: No Hx Hypothyroidism: No Hx Hyperthyroidism: No - Hematic Hx Anemia: No Hx Sickle Cell Disease: Yes (TRAIT) - Other Systems Hx Alcohol Use: Yes (SOCIALLY BEFORE .) - Additional Comments Anesthesia Medical History Comments: H/O tetralogy of fallot with repair
--- NOTE | 2021-11-06 17:42 | Progress Note ---
Labor Epidural - Labor Epidural Start Time: 17:21 Stop Time: 17:40 Performed by:: JOSHUA MARK ([facility]) Procedure: Patient is requesting epidural for labor and pain. H&P, labs were reviewed. Patient IDed, H&P reviewed, all questions and concerns were answered, and consent was signed. Timeout was performed at bedside. Patient in sitting position. Sterile prep and drape was performed. 3ml of 1% lidocaine skin wheal at L[3]- L [4]. 17-gauge Tuohy epidural needle was advanced to loss of resistance with air technique 7cm. Negative CSF negative blood. Epidural catheter advanced to [12] centimeters. [negative] Aspiration [negative] test dose. Sterile dressing applied. Patient tolerated procedure.
[2021-11-06] MEDS ORDERED: fentaNYL-BUPIV 2 MCG/ML-0.125% 200 MCG/100 ML BAG EPIDURAL SCH (18:00)
[2021-11-06] MEDS ORDERED: LACTATED RINGERS 1000 ML IV SOLN IV ONE (18:18)
--- NOTE | 2021-11-06 18:30 | Progress Note ---
Assessment and Plan Pt resting comfortably after epidural placed. Partner at bedside. Pitocin @2mU/hr. SROM clear. Anticipate . - Patient Problems (1) GBS screening not performed Current Visit: Yes Status: Acute (2) 37 or more weeks gestation of Onset Date: ~11/06/21 Current Visit: Yes Status: Acute Subjective - Subjective Date of service: 11/06/21 Principal diagnosis: IUP @ 37+0 weeks, early labor Patient reports: loss of fluid, movement normal, contractions, no vaginal bleeding Objective - Vital Signs Vital Signs: Vital Signs - 12hr 11/06/21 11/06/21 11/06/21 06:30 06:35 06:40 Pulse Rate 73 73 71 Blood Pressure O2 Sat by Pulse 96 97 94 Oximetry O2 Sat by Pulse Oximetry [ Throughout] 11/06/21 11/06/21 11/06/21 06:45 06:51 06:56 Pulse Rate 72 60 68 Blood Pressure O2 Sat by Pulse 95 96 96 Oximetry O2 Sat by Pulse Oximetry [ Throughout] 11/06/21 11/06/21 11/06/21 07:01 07:05 07:06 Pulse Rate 64 85 63 Blood Pressure O2 Sat by Pulse 95 94 96 Oximetry O2 Sat by Pulse Oximetry [ Throughout] 11/06/21 11/06/21 11/06/21 07:11 07:15 07:16 Pulse Rate 65 75 64 Blood Pressure O2 Sat by Pulse 96 94 96 Oximetry O2 Sat by Pulse Oximetry [ Throughout] 11/06/21 11/06/21 11/06/21 07:21 07:26 07:31 Pulse Rate 68 74 74 Blood Pressure O2 Sat by Pulse 96 0 L 96 Oximetry O2 Sat by Pulse Oximetry [ Throughout] 11/06/21 11/06/21 11/06/21 07:36 07:41 07:46 Pulse Rate 74 77 80 Blood Pressure O2 Sat by Pulse 96 97 96 Oximetry O2 Sat by Pulse Oximetry [ Throughout] 11/06/21 11/06/21 11/06/21 07:51 07:56 08:00 Pulse Rate 82 77 Blood Pressure O2 Sat by Pulse 97 96 Oximetry O2 Sat by Pulse 96 Oximetry [ Throughout] 11/06/21 11/06/21 11/06/21 08:01 08:06 08:16 Pulse Rate 78 79 Blood Pressure O2 Sat by Pulse 96 96 85 Oximetry O2 Sat by Pulse Oximetry [ Throughout] 11/06/21 11/06/21 11/06/21 08:22 08:23 08:49 Pulse Rate 53 L 71 Blood Pressure 101/62 O2 Sat by Pulse 92 82 L Oximetry O2 Sat by Pulse Oximetry [ Throughout] 11/06/21 11/06/21 11/06/21 10:12 17:22 17:24 Pulse Rate 63 71 63 Blood Pressure 115/67 117/67 O2 Sat by Pulse 77 L 100 Oximetry O2 Sat by Pulse Oximetry [ Throughout] 11/06/21 11/06/21 11/06/21 17:26 17:27 17:28 Pulse Rate 66 73 66 Blood Pressure 121/71 117/72 O2 Sat by Pulse 99 Oximetry O2 Sat by Pulse Oximetry [ Throughout] 11/06/21 11/06/21 11/06/21 17:30 17:32 17:34 Pulse Rate 74 60 82 Blood Pressure 120/72 113/69 119/76 O2 Sat by Pulse 99 89 Oximetry O2 Sat by Pulse Oximetry [ Throughout] 11/06/21 11/06/21 11/06/21 17:36 17:37 17:38 Pulse Rate 71 73 78 Blood Pressure 112/70 112/68 O2 Sat by Pulse 99 Oximetry O2 Sat by Pulse Oximetry [ Throughout] 11/06/21 11/06/21 11/06/21 17:40 17:42 17:44 Pulse Rate 76 78 75 Blood Pressure 106/61 107/59 108/57 O2 Sat by Pulse 98 Oximetry O2 Sat by Pulse Oximetry [ Throughout] 11/06/21 11/06/21 11/06/21 17:46 17:47 17:48 Pulse Rate 70 69 74 Blood Pressure 105/59 101/57 O2 Sat by Pulse 99 Oximetry O2 Sat by Pulse Oximetry [ Throughout] 11/06/21 11/06/21 11/06/21 17:50 17:52 17:54 Pulse Rate 70 70 66 Blood Pressure 102/53 99/54 101/59 O2 Sat by Pulse 97 Oximetry O2 Sat by Pulse Oximetry [ Throughout] 11/06/21 11/06/21 11/06/21 17:56 17:57 17:58 Pulse Rate 75 75 81 Blood Pressure 99/58 107/57 O2 Sat by Pulse 99 Oximetry O2 Sat by Pulse Oximetry [ Throughout] 11/06/21 11/06/21 11/06/21 18:00 18:02 18:04 Pulse Rate 79 72 71 Blood Pressure 101/56 102/57 100/55 O2 Sat by Pulse 98 Oximetry O2 Sat by Pulse Oximetry [ Throughout] 11/06/21 11/06/21 11/06/21 18:06 18:07 18:08 Pulse Rate 76 65 72 Blood Pressure 100/58 97/53 O2 Sat by Pulse 99 Oximetry O2 Sat by Pulse Oximetry [ Throughout] 11/06/21 11/06/21 11/06/21 18:10 18:12 18:14 Pulse Rate 75 58 L 65 Blood Pressure 100/57 99/58 104/56 O2 Sat by Pulse 99 Oximetry O2 Sat by Pulse Oximetry [ Throughout] 11/06/21 11/06/21 18:17 18:22 Pulse Rate 74 77 Blood Pressure O2 Sat by Pulse 99 100 Oximetry O2 Sat by Pulse Oximetry [ Throughout] - Exam Abdomen: Present: normal appearance Vulva: both: normal Uterus: Present: other (gravid) FHR: category 1 Uterine Contraction Monitor Mode: External Cervical Dilatation: 6 Cervical Effacement Percentage: 80 station: -1 Uterine Contraction Frequency (min): 2-4 Uterine Contraction Duration: 80-100 Uterine Contraction Pattern: Regular Uterine Tone Measurement Phase: Resting Uterine Contraction Intensity: Moderate Extremities: normal - Labs Labs: Abnormal Labs 11/06/21 11/06/21 02:38 06:20 MCV 75 L MCH 24 L RDW 16.8 H Urine WBC (Auto) 20.0 H Laboratory Results - last 24 hr 11/06/21 11/06/21 11/06/21 02:38 06:20 06:20 WBC 10.7 RBC 4.91 Hgb 11.9 Hct 37.0 MCV 75 L MCH 24 L MCHC 32 RDW 16.8 H Plt Count 170 Urine Color Yellow Urine Turbidity Clear Urine pH 6.0 Ur Specific [place] 1.006 Urine Protein <15 mg/dl Urine Glucose (UA) Negative Urine Ketones Negative Urine Blood Negative Urine Nitrite Negative Urine Bilirubin Negative Urine Urobilinogen < 2.0 Ur Leukocyte Esterase Large Urine WBC (Auto) 20.0 H Urine RBC (Auto) 3.0 U Epithel Cells (Auto) 3.0 Urine Bacteria (Auto) 1+ Urine Yeast (Budding) 1 Syphilis IgG Antibody Nonreactive SARS-CoV-2 (PCR) Blood Type Antibody Screen 11/06/21 11/06/21 06:20 09:28 WBC RBC Hgb Hct MCV MCH MCHC RDW Plt Count Urine Color Urine Turbidity Urine pH Ur Specific [place] Urine Protein Urine Glucose (UA) Urine Ketones Urine Blood Urine Nitrite Urine Bilirubin Urine Urobilinogen Ur Leukocyte Esterase Urine WBC (Auto) Urine RBC (Auto) U Epithel Cells (Auto) Urine Bacteria (Auto) Urine Yeast (Budding) Syphilis IgG Antibody SARS-CoV-2 (PCR) Negative Blood Type O POSITIVE Antibody Screen Negative
[2021-11-06] MEDS: ePHEDrine SULFATE 50 MG/1 ML INJ IV PRN ×2 (19:22→20:03)
--- NOTE | 2021-11-06 23:41 | Procedure Note ---
OB Delivery Note - Delivery Date of Delivery: 11/06/21 Creative Coordinator: STEPH FANG (Salom[place] PAIZ) Estimated blood loss: <100cc - Vaginal Delivery presentation: vertex Delivery position: OA (BELKYS) Intrapartum events: prolonged latent phase Delivery induction: none Delivery augmentation: pitocin Delivery monitor: external FHT, internal uterine Route of delivery: Delivery placenta: spontaneous Delivery cord: 3 umbilical vessels Episiotomy: none Delivery laceration: none Anesthesia: epidural Delivery comments: of viable female infant. APGARS 8/9. female infant born over intact perineum, placed skin to skin on mother's abdomen. 3 vessel cord clamped and cut by partner. Placenta delivered spontaneously and intact. FF @U-2. uterus firm with fundal massage and pitocin IV. Perineum, cervix, and vagina inspected. No lacerations noted. Tolerated delivery well with epidural. No complications noted. Mom and baby stable. CHENCHO Goss, CARIDADM - A at 1 minute: 8 at 5 minutes: 9 Infant Gender: Female (5#9oz)
[2021-11-07] MEDS ORDERED: LANOLIN/ZINC/DIMETHICONE (LANSINOH) 7 GM TP PRN (01:42)
[2021-11-07] MEDS ORDERED: IBUPROFEN 600 MG TAB PO SCH (01:42)
[2021-11-07] MEDS ORDERED: diphenhydrAMINE 25 MG CAP PO PRN (01:42)
[2021-11-07] MEDS ORDERED: BENZOCAINE/MENTHOL 20/0.5% TOP SPRAY 56 GM TP PRN (01:42)
[2021-11-07] MEDS ORDERED: WITCH HAZEL/ GLYCERIN PAD TP PRN (01:42)
[2021-11-07] MEDS ORDERED: ONDANSETRON 4 MG/2 ML INJ IV PRN (01:42)
[2021-11-07] MEDS ORDERED: MAGNESIUM HYDROXIDE (MOM) ORAL LIQD UDC PO PRN (01:42)
[2021-11-07] MEDS ORDERED: PROMETHAZINE 25 MG TAB PO PRN (01:42)
[2021-11-07] MEDS: IBUPROFEN 800 MG TAB PO SCH ×3 (05:17→17:49)
--- NOTE | 2021-11-07 08:16 | Progress Note ---
Assessment and Plan A: 26 y.o. s/p , ~ 9 hrs . P: Continue with care. Anticipate discharge home on 11/09. Subjective - Subjective Date of service: 11/07/21 Principal diagnosis: s/p , PPD ~9 hrs Patient reports: appetite normal, voiding normally, pain well controlled, flatus, ambulating normally Mathews: doing well Objective - Vital Signs Latest vital signs: Vital Signs Temp Pulse Resp BP Pulse Ox Pulse Ox 11/07/21 06:17 18 11/07/21 05:17 18 11/07/21 01:47 99 11/07/21 01:30 98.3 F 65 18 116/69 100 11/07/21 00:58 78 82 L 11/07/21 00:55 90 11/07/21 00:52 76 99 11/07/21 00:47 70 93/50 99 11/07/21 00:45 94 11/07/21 00:00 69 84 11/06/21 23:59 80 99 11/06/21 23:57 79 109/55 11/06/21 23:54 78 100 11/06/21 23:49 75 87 11/06/21 23:44 72 100 11/06/21 23:42 74 105/72 11/06/21 23:39 75 100 11/06/21 23:34 72 99 11/06/21 23:29 76 98 11/06/21 23:27 70 100/53 11/06/21 23:24 84 97 11/06/21 23:19 88 98 11/06/21 23:18 82 94 11/06/21 23:12 82 100 11/06/21 23:07 80 99 11/06/21 23:05 25 L 94 11/06/21 23:02 73 100 11/06/21 22:57 75 100 11/06/21 22:56 74 97/62 11/06/21 22:52 72 100 11/06/21 22:48 68 91/57 11/06/21 22:47 67 100 11/06/21 22:46 69 81/43 11/06/21 22:45 68 84/49 11/06/21 22:42 69 100 11/06/21 22:37 77 100 11/06/21 22:32 75 98 11/06/21 22:27 76 100 11/06/21 22:26 73 92/50 11/06/21 22:22 74 100 11/06/21 22:17 75 98 11/06/21 22:12 79 99 11/06/21 22:11 75 96/55 11/06/21 22:07 71 100 11/06/21 22:02 81 87 11/06/21 21:57 65 100 11/06/21 21:56 67 102/55 11/06/21 21:52 64 100 11/06/21 21:47 65 100 11/06/21 21:42 69 100/57 100 11/06/21 21:37 66 100 11/06/21 21:33 65 93/52 11/06/21 21:32 69 83/47 97 11/06/21 21:27 71 100 11/06/21 21:22 70 100 11/06/21 21:17 65 100 11/06/21 21:15 67 86 11/06/21 21:12 68 100 11/06/21 21:10 68 104/59 11/06/21 21:08 68 107/55 11/06/21 21:07 71 99 11/06/21 21:06 67 105/57 11/06/21 21:04 64 103/59 11/06/21 21:02 66 105/58 99 11/06/21 21:00 63 103/58 11/06/21 20:58 60 105/55 11/06/21 20:57 74 100 11/06/21 20:56 69 102/58 11/06/21 20:54 81 100/56 11/06/21 20:52 77 100/58 99 11/06/21 20:50 69 103/57 93 11/06/21 20:48 66 101/56 11/06/21 20:47 63 99 11/06/21 20:46 67 95/54 11/06/21 20:44 69 83/51 11/06/21 20:43 70 93/55 11/06/21 20:42 66 98 11/06/21 20:40 68 105/54 11/06/21 20:38 65 101/55 11/06/21 20:37 66 99 11/06/21 20:36 62 99/58 11/06/21 20:34 73 95/50 11/06/21 20:32 80 85/48 100 11/06/21 20:30 71 97/55 11/06/21 20:28 77 98/55 11/06/21 20:27 73 98 11/06/21 20:26 76 101/57 11/06/21 20:24 70 104/57 94 11/06/21 20:22 80 103/60 99 11/06/21 20:20 74 99/48 11/06/21 20:17 69 100 11/06/21 20:14 58 L 93/52 11/06/21 20:12 64 89/54 100 11/06/21 20:10 66 85/50 11/06/21 20:08 65 92/44 11/06/21 20:07 67 100 11/06/21 20:06 68 98/50 11/06/21 20:04 65 94/51 11/06/21 20:02 59 L 94/52 99 11/06/21 20:00 60 91/53 11/06/21 19:59 70 84/46 11/06/21 19:57 66 100 11/06/21 19:56 63 86/50 11/06/21 19:54 60 97/54 11/06/21 19:53 66 99/52 11/06/21 19:52 65 98 11/06/21 19:48 72 102/59 11/06/21 19:47 71 100 11/06/21 19:46 74 105/56 11/06/21 19:44 70 105/58 11/06/21 19:42 70 102/58 98 11/06/21 19:40 71 104/57 11/06/21 19:38 65 105/55 11/06/21 19:37 72 99 11/06/21 19:36 70 104/57 11/06/21 19:34 68 105/55 11/06/21 19:32 62 104/55 100 11/06/21 19:30 66 105/59 11/06/21 19:28 67 102/59 11/06/21 19:27 64 99 11/06/21 19:26 71 95/50 11/06/21 19:24 67 105/58 11/06/21 19:22 67 101/59 99 11/06/21 19:20 68 103/58 11/06/21 19:18 67 104/59 11/06/21 19:17 64 100 11/06/21 19:16 65 107/58 11/06/21 19:14 66 106/60 11/06/21 19:13 65 109/60 11/06/21 19:12 65 99 11/06/21 19:08 71 76/48 11/06/21 19:07 66 73/40 99 11/06/21 19:06 67 85/47 11/06/21 19:05 68 82/44 11/06/21 19:02 64 99 11/06/21 18:57 60 97 11/06/21 18:52 60 97 11/06/21 18:47 61 97 11/06/21 18:42 65 97 11/06/21 18:37 58 L 97 11/06/21 18:32 71 96 11/06/21 18:27 63 97 11/06/21 18:22 77 100 11/06/21 18:17 74 99 11/06/21 18:14 65 104/56 11/06/21 18:12 58 L 99/58 99 11/06/21 18:10 75 100/57 11/06/21 18:08 72 97/53 11/06/21 18:07 65 99 11/06/21 18:06 76 100/58 11/06/21 18:04 71 100/55 11/06/21 18:02 72 102/57 98 11/06/21 18:00 79 101/56 11/06/21 17:58 81 107/57 11/06/21 17:57 75 99 11/06/21 17:56 75 99/58 11/06/21 17:54 66 101/59 11/06/21 17:52 70 99/54 97 11/06/21 17:50 70 102/53 11/06/21 17:48 74 101/57 11/06/21 17:47 69 99 11/06/21 17:46 70 105/59 11/06/21 17:44 75 108/57 11/06/21 17:42 78 107/59 98 11/06/21 17:40 76 106/61 11/06/21 17:38 78 112/68 11/06/21 17:37 73 99 11/06/21 17:36 71 112/70 11/06/21 17:34 82 119/76 89 11/06/21 17:32 60 113/69 99 11/06/21 17:30 74 120/72 11/06/21 17:28 66 117/72 11/06/21 17:27 73 99 11/06/21 17:26 66 121/71 11/06/21 17:24 63 117/67 11/06/21 17:22 71 115/67 100 11/06/21 10:12 63 77 L 11/06/21 08:49 82 L 11/06/21 08:23 71 101/62 11/06/21 08:22 53 L 92 11/06/21 08:16 85 Intake and Output 11/06/21 11/07/21 11/07/21 22:59 06:59 14:59 Intake Total 629.866 240 Output Total 900 Balance 629.866 -660 Intake: IV 629.866 AMPICILLIN/NS 1 GM/50 ML 50 1 gm In 50 ml @ 100 mls/ hr IV Q4H RAZA Rx#: [id number] Lactated Ringers 1,000 ml 545.833 @ 125 mls/hr IV DIRECT RAZA Rx#:[id number] PITOCin/NS 30 UNIT/500ML 34.033 30 units In 500 ml @ 40 mls/hr IV TITR RAZA Rx#: [id number] Oral 240 Output: Urine 900 Void 900 Other: Total, Intake Amount 240 Total, Output Amount 600 Estimated Blood Loss 50 - Exam Narrative Exam: Slight swelling to perineum noted. Ice pack applied. Breasts: Present: deferred Cardiovascular: Present: Regular rate Lungs: Present: Normal air movement Abdomen: Present: normal appearance, soft Vulva: both: normal (Some slight swelling noted. ) Uterus: Present: normal, firm, other (Light lochia.) Extremities: Present: normal
--- NOTE | 2021-11-07 10:07 | Post Anesthesia Evaluation ---
- Post Anesthesia Evaluation Patient Participated: Yes Airway Patent: Yes Stable Respiratory Function: Yes Nausea/Vomiting: No Temp > 96.8F: Yes Pain Manageable: Yes Adequeate Hydration: Yes Anesthesia Complications: No Block Receding Appropriately: Yes Patient on Ventilator: No
[2021-11-07] MEDS: PRENATAL VIT27-FE FUMARATE-FOLIC ACID VIT TAB PO SCH (11:07)
[2021-11-07] MEDS: DOCUSATE SODIUM 100 MG CAP PO SCH ×2 (11:07→21:29)
[2021-11-07 13:58] LABS: Hematocrit 32.6 % (30.3-42.9); Hemoglobin 10.4 gm/dl (10.1-14.3)
[2021-11-07] MEDS ORDERED: HYDROcodone/ACETAMINOPHEN 5-325 MG TAB PO NR (21:18)
[2021-11-08] MEDS: IBUPROFEN 800 MG TAB PO SCH ×2 (01:03→10:25)
--- NOTE | 2021-11-08 06:30 | Discharge Summary ---
Providers - Providers Date of Admission: 11/06/21 05:28 Date of discharge: 11/08/21 (pt desires discharge home) Attending physician: NEGRITO VASQUEZ MD 11/07/21 01:42 Consult to Color Coater [CONS] Routine Reason For Exam: assistance with , SNS Primary care physician: NEGRITO VASQUEZ MD Hospitalization Reason for admission: active labor, IUP at term Delivery: Episiotomy: none Laceration: none Other procedures: none complications: none Discharge diagnosis: IUP at term delivered baby: female Condition at discharge: Good Disposition: 01 HOME / SELF CARE / HOMELESS - Discharge Diagnoses (1) (spontaneous vaginal delivery) Status: Acute Comment: Pt reports infant will be discharged today and she desires discharge home. VSSAF, H&H post delivery stable. Pt reports ambulating, voiding, and eating without difficulty. Discharge precautions reviewed. Pt to FU 4 weeks . Pt verbalizes understanding. Pt denies interests in control. Plan - Provider Discharge Summary Activity: routine, no sex for 6 weeks, no heavy lifting 4 weeks, no strenuous exercise Diet: routine Instructions: routine Additional instructions: [] Smoking cessation referral if applicable(refer to patient education folder for contact #) [] Refer to [facility] Booklet Call your doctor immediately for: * Fever > 100.5 * Heavy vaginal bleeding ( >1 pad per hour) * Severe persistent headache * Shortness of breath * Reddened, hot, painful area to leg or breast * Drainage or odor from incision. * Keep incision clean and dry at all times and follow doctor's instructions regarding bathing/showering Congratulations! Please call [phone] and schedule your visit in 4 weeks. Thank you! - Follow up plan Follow up: NEGRITO VASQUEZ MD [Primary Care Provider] - 7 Days
[2021-11-08] MEDS: DOCUSATE SODIUM 100 MG CAP PO SCH (10:25)
[2021-11-08] MEDS: PRENATAL VIT27-FE FUMARATE-FOLIC ACID VIT TAB PO SCH (10:25)
[2021-11-08 18:02] VITALS: BP 117/60
== END 2021-11-08 17:50 | disposition home or self-care (01) | DRG 775 ==
LOC: TRG 02:20 → APU 02:21 → TRG 05:24 → LD 05:28 → OB 11-07 01:41
PROVIDERS: ADMIT Student in an Organized Health Care Education/Training Program; ATTEND Student in an Organized Health Care Education/Training Program
PROC: 10E0XZZ Delivery of Products of Conception, External Approach (ICD-10-PCS; principal; 2021-11-06)
PROC: 3E0R3BZ Introduction of Anesthetic Agent into Spinal Canal, Percutaneous Approach (ICD-10-PCS; 2021-11-06)
PROC: 00HU33Z Insertion of Infusion Device into Spinal Canal, Percutaneous Approach (ICD-10-PCS; 2021-11-06)
DX: O63.9 Long labor, unspecified (principal); Z3A.37 37 weeks gestation of pregnancy; Z37.0 Single live birth; D57.3 Sickle-cell trait; Z91.041 Radiographic dye allergy status; Z20.822 Contact with and (suspected) exposure to COVID-19; O99.02 Anemia complicating childbirth
CPT/HCPCS: 36415; 81001; 85014; 85018; 85027; 86592; 86850; 86900; 86901; 87086; G0378; J3490; J0290; J1200; J2590; J3010; J7120; U0003